=== PATIENT | male | born 1995 | race Caucasian/White ===

== ENCOUNTER 2024-02-12 15:10 | Emergency (ER) | payer SELFPAY ==
[2024-02-12 15:23] VITALS: BP 145/86; PULSE 82; RESP 18; TEMP 98.2; BMI 25.7
[2024-02-12] MEDS ORDERED: DEXAMETHASONE SOD PHOSPHATE 10 MG/1 ML VIAL ONE (15:38)
[2024-02-12] MEDS ORDERED: METHOCARBAMOL 500 MG TABLET ONE (15:38)
[2024-02-12] MEDS ORDERED: KETOROLAC TROMETHAMINE 30 MG/1 ML VIAL ONE (15:38)
[2024-02-12] MEDS ORDERED: LIDOCAINE 4% PATCH TP ONE (15:38)
[2024-02-12] MEDS: DEXAMETHASONE SOD PHOSPHATE 10 MG/1 ML VIAL IM ONE (15:46)
[2024-02-12] MEDS: KETOROLAC TROMETHAMINE 30 MG/1 ML VIAL IM ONE (15:46)
[2024-02-12] MEDS: METHOCARBAMOL 500 MG TABLET PO ONE (15:46)
[2024-02-12] MEDS: LIDOCAINE 4% PATCH TP ONE (15:46)
== END 2024-02-12 18:07 | disposition home or self-care (01) ==
LOC: JERFT 15:10
PROC: 3E0233Z Introduction of Anti-inflammatory into Muscle, Percutaneous Approach (ICD-10-PCS; principal; 2024-02-12)
PROC: 3E023GC Introduction of Other Therapeutic Substance into Muscle, Percutaneous Approach (ICD-10-PCS; 2024-02-12)
DX: M62.830 Muscle spasm of back (principal); M54.50 Low back pain, unspecified; X50.0XXA Overexertion from strenuous movement or load, initial encounter; Y99.0 Civilian activity done for income or pay
CPT/HCPCS: 72100-TC-FY; 99284-25; J1100